=== PATIENT | female | born 1965 | race Caucasian/White ===

== ENCOUNTER 2020-12-26 01:07 | Emergency (ER) | payer SELFPAY ==
[2020-12-26 01:27] VITALS: TEMP 98.1; BMI 41.0
[2020-12-26 01:52] LABS: BASO % 2.8 % (0-2.0); EOS % 1.5 % (0-4.5); HEMATOCRIT 34.1 % (32.4-45.2); HEMOGLOBIN 11.2 GM/dL (10.7-15.3); LYMPH % 21.7 % (8-40); MCHC 32.8 g/dl (32.0-36.0); MEAN CELL VOLUME 59.6 fl (80-96); MEAN PLT VOLUME 9.5 fl (7.5-11.1); PLATELET COUNT 152 10^3/uL (134-434); RBC 5.73 M/mm3 (3.60-5.2); RDW 15.7 % (11.6-15.6); WHITE BLOOD COUNT 8.8 K/mm3 (4.0-10.0)
[2020-12-26 02:05] LABS: MCH 19.5 pg (25.7-33.7)
[2020-12-26 02:20] LABS: BILIRUBIN,TOTAL 0.6 mg/dL (0.2-1)
[2020-12-26] MEDS ORDERED: SODIUM CHLORIDE 0.9% 500 ML INFUS.BAG IV ONE (02:26)
[2020-12-26 02:45] LABS: ANISOCYTOSIS 2+; MACROCYTOSIS 0; OVALOCYTE 1+; PLATELET ESTIMATE DECREASED; TEAR DROP CELLS 1+
[2020-12-26 03:17] LABS: ALBUMIN 3.9 g/dl (3.4-5.0); ALK PHOS 91 U/L (45-117); ANION GAP 7 MMOL/L (8-16); BLOOD UREA NITROGEN 20.3 mg/dL (7-18); CALCIUM 8.9 mg/dL (8.5-10.1); CHLORIDE 106 mmol/L (98-107); CO2 27 mmol/L (21-32); CREATININE 0.6 mg/dL (0.55-1.3); GLUCOSE,RANDOM 167 mg/dL (74-106); SGOT/AST 21 U/L (15-37); SGPT/ALT 37 U/L (13-61); SODIUM 140 mmol/L (136-145); TOT PROT 7.7 g/dl (6.4-8.2)
[2020-12-26 03:49] LABS: CHLORIDE 109 mmol/L (98-107); SODIUM 142 mmol/L (136-145)
[2020-12-26 03:50] LABS: CALCIUM 8.2 mg/dL (8.5-10.1)
[2020-12-26 03:51] LABS: ALBUMIN 3.6 g/dl (3.4-5.0); ANION GAP 8 MMOL/L (8-16); BLOOD UREA NITROGEN 17.9 mg/dL (7-18); CO2 26 mmol/L (21-32); GLUCOSE,RANDOM 157 mg/dL (74-106)
[2020-12-26 03:53] LABS: CREATININE 0.6 mg/dL (0.55-1.3); SGOT/AST 15 U/L (15-37); SGPT/ALT 32 U/L (13-61)
[2020-12-26 03:56] LABS: BILIRUBIN,TOTAL 0.5 mg/dL (0.2-1)
[2020-12-26 03:57] LABS: ALK PHOS 82 U/L (45-117)
[2020-12-26] MEDS ORDERED: LEVOTHYROXINE NA 125 MCG TABLET (FP) PO ONE (05:31)
[2020-12-26] MEDS ORDERED: LEVOTHYROXINE NA 25 MCG TABLET (FP) ONE (05:47)
[2020-12-26 06:07] VITALS: BP 150/82; PULSE 68
== END 2020-12-26 06:09 | disposition home or self-care (01) ==
LOC: JER 01:07
DX: R00.2 Palpitations (principal)
CPT/HCPCS: 36415; 71045-TC-FY; 80053; 84443; 84484; 85025; 93005; 93010; 99284-25; C9803; U0003; U0005